=== PATIENT | male | born 1970 | race African-American/Black ===

== ENCOUNTER 2017-11-22 17:43 | Emergency (ER) | payer OTHER ==
[2017-11-22 18:07] LABS: ADD MAN DIFF? NO
[2017-11-22 18:09] LABS: BASOPHIL # 0.1 10^3/ul (0.0-0.1); BASOPHILS % 1.1 % (0.0-2.0); EOSINOPHILS # 0.2 10^3/ul (0.0-0.5); EOSINOPHILS % 1.4 % (0.0-7.0); HEMATOCRIT 48.9 % (42.0-52.0); HEMOGLOBIN 15.9 g/dl (14.0-18.0); LYMPHOCYTES # 4.8 10^3/ul (0.8-2.9); LYMPHOCYTES % 37.9 % (15.0-51.0); MEAN CORPUSCULAR HEMOGLOBIN 26.5 pg (29.0-33.0); MEAN CORPUSCULAR HGB CONC 32.5 g/dl (32.0-37.0); MEAN CORPUSCULAR VOLUME 81.5 fl (82.0-101.0); MEAN PLATELET VOLUME 9.8 fl (7.4-10.4); MONOCYTE # 1.2 10^3/ul (0.3-0.9); MONOCYTES % 9.4 % (0.0-11.0); NEUTROPHIL # 6.3 10^3/ul (1.6-7.5); NEUTROPHILS % 49.8 % (39.0-77.0); PLATELET COUNT 227 10^3/UL (140-415); RED CELL DISTRIBUTION WIDTH 15.2 % (11.5-14.5)
[2017-11-22 18:09] LABS: WHITE BLOOD COUNT 12.7 10^3/ul (4.8-10.8)
[2017-11-22] MEDS: LEVETIRACETAM 500 MG (PMX) 100 ML IVPB (18:19)
[2017-11-22 18:34] LABS: INR 1.09; PROTIME 14.3 Sec (11.9-14.9); PT RATIO 1.1
[2017-11-22 18:35] LABS: PARTIAL THROMBOPLASTIN TIME 24.8 Sec (25.0-35.0)
[2017-11-22 18:41] LABS: ANION GAP 32 (8-16); BLOOD UREA NITROGEN 10 mg/dl (7-20); CALCIUM 9.9 mg/dl (8.4-10.2); CHLORIDE 110 mmol/L (97-110); CREATININE 1.55 mg/dl (0.61-1.24); GLUCOSE 125 mg/dl (70-220); PHENYTOIN (DILANTIN) 9.9 ug/ml (10.0-20.0); POTASSIUM 3.4 mmol/L (3.5-5.1); SODIUM 148 mmol/L (135-144)
[2017-11-22 18:42] LABS: ETHANOL < 10.0 mg/dl
[2017-11-22 18:43] LABS: CARBON DIOXIDE 9 mmol/L (21-31)
[2017-11-22 19:00] LABS: AMPHETAMINE/METHAMPHETAMINE Negative (NEGATIVE); BARBITURATES Negative (NEGATIVE); BENZODIAZEPINES Negative (NEGATIVE); CANNABINOIDS Negative (NEGATIVE); COCAINE Negative (NEGATIVE); OPIATES Negative (NEGATIVE)
[2017-11-22] MEDS: POTASSIUM CHLORIDE (SR) 20 MEQ TAB PO (20:14)
[2017-11-22] MEDS: PHENYTOIN 500 MG in SOD CHLORIDE 0.9% 100 ML IV (20:25)
== END 2017-11-22 21:13 | disposition home or self-care (01) ==
LOC: E/R 17:43
DX: G40.909 Epilepsy, unspecified, not intractable, without status epilepticus (principal); E87.6 Hypokalemia; N28.9 Disorder of kidney and ureter, unspecified; R40.2142 Coma scale, eyes open, spontaneous, at arrival to emergency department; R40.2362 Coma scale, best motor response, obeys commands, at arrival to emergency department; R40.2252 Coma scale, best verbal response, oriented, at arrival to emergency department
CPT/HCPCS: 36415; 70450; 72125; 80048; 80185; 80306; 80307; 82962; 85025; 85610; 85730; 96374; 96375; 99285-25